=== PATIENT | female | born 1995 | race African-American/Black ===

== ENCOUNTER 2016-11-04 16:05 | Observation (INO) ==
[2016-11-04] MEDS ORDERED: SODIUM CHLORIDE 0.9% 500 ML IV STA (16:48)
--- NOTE | 2016-11-04 17:00 | Emergency Department Note ---
Cabrera Mobley [place], am scribing for, and in the presence of, Bernabe Sotelo MD 16:56. Ashleigh Mobley Charles R, MD, personally performed the services described in this documentation, ascribed by Leilani Rees in my presence, and it is both accurate and complete 700 . Arrival - Arrival Chief Complaint: Urogenital - Female Stated Complaint: 10WKS PREG/BLEEDING ED Nursing Triage Note: C/o vaginal spotting-onset 1.5 weeks ago. Patient is 10 weeks gestation. HENRIETTA 05/31/17. A0. Mode of Arrival: Ambulatory Limitations: No Limitations Source: Patient Time Seen by Provider: 11/04/16 16:46 - History of Present Illness HPI Narrative: Pt is a 21 y/o black female who is 10 weeks gestation presenting to the ED with c/o vaginal spotting that onset one week and half ago. This is her first and pt is tearful and anxious. She has saturated one pad a day. Pt denies fever, chills, nausea, abdominal cramping, vomiting, diarrhea, back pain , and AGOSTO. Pt is a A0. Consistency: constant Severity: moderate Date of Last Menstrual Period: 10 weeks gestation Allergies/Adverse Reactions: Allergies Allergy/AdvReac Type Severity Reaction Status Date / Time No Known Allergies Allergy Verified 07/17/15 10:40 Home Medications: Home Medications Medication Instructions Recorded Confirmed Type Multivitamin () [ 1 tablet PO DAILY 11/04/16 11/04/16 History Vitamin] Review of System - Review of System 12 point system: reviewed and no additional remarkable complaints except as stated - Review of System Constitutional: Absent: chills, fever, weakness Eyes: Absent: vision change Head/Ears/Nose/Throat: Absent: earache, nasal drainage Respiratory: Absent: cough Cardiovascular: Absent: chest pain, dyspnea on exertion, syncope Gastrointestinal: Absent: abdominal pain, nausea, vomiting, diarrhea Genitourinary female: Present: abnormal menses (spotting while 10 weeks gestation ). Absent: dysuria Musculoskeletal: Absent: arm pain, back pain, leg pain, neck pain Skin: Absent: rash Neurological: Absent: headache, weakness, confusion, abnormal gait, vertigo Psychiatric: Absent: anxiety Endocrine: Absent: fatigue Hematological/Lymphatic: Absent: easy bleeding Allergic/Immunologic: Absent: facial swelling Medical,Surgical,& Family Hx - Social History Smoking Status: Former smoker Frequency of Alcohol Use: None Type of Drug Use: None Exam Vital Signs: Vital Signs Temperature 97.2 F L 11/04/16 16:21 Pulse Rate 89 11/04/16 16:21 Respiratory Rate 16 11/04/16 16:21 Blood Pressure 137/75 11/04/16 16:21 O2 Sat by Pulse Oximetry 96 11/04/16 16:21 - General General appearance: alert, in no apparent distress, other (tearful ) - Head Head exam: Present: atraumatic, normocephalic, normal inspection - Eye Eye exam: Present: normal appearance, PERRL, EOMI - ENT ENT exam: Present: normal exam, normal oropharynx, mucous membranes moist, TM's normal bilaterally, normal external ear exam - Neck Neck exam: Present: normal inspection, full ROM, trachea midline. Absent: tenderness - Chest Chest inspection: Present: normal inspection, symmetric chest wall rise - Respiratory Respiratory exam: Present: normal lung sounds bilaterally - Cardiovascular Cardiovascular exam: Present: regular rate, normal rhythm, normal heart sounds - Abdominal Exam Abdominal exam: Present: soft, normal bowel sounds. Absent: distention, tenderness - Extremities Exam Extremities exam: Present: normal inspection, full ROM, normal capillary refill. Absent: tenderness, pedal edema, calf tenderness - Back Exam Back exam: Present: normal inspection, full ROM. Absent: tenderness - Neurological Exam Neurological exam: Present: alert, oriented X3, CN II-XII intact, normal gait, reflexes normal - Psychiatric Psychiatric exam: Present: normal affect, normal mood - Skin Skin exam: Present: warm, dry, intact, normal color. Absent: rash, diaphoresis Course - Consultations Consultation #1: Spoke to Dr. Rey he's going to come in and take patient to surgery for laparoscopic removal ectopic Time: 19:14 Results - Labs CBC & BMP: 11/04/16 17:12 11/04/16 17:12 Disposition Clinical Impression: Urinary tract infection, Ectopic Case discussed with: patient Disposition: Still a Patient Condition: Stable Time of Disposition: 19:21
[2016-11-04 17:47] LABS: Basophils # 0.1 10*3/uL (0.0-0.2); Basophils % 0.8 % (0.0-0.8); Eosinophils # 0.1 10*3/uL (0.0-0.87); Eosinophils % 0.8 % (0.00-10.9); Hematocrit 39.7 VOL% (35.7-47.0); Hemoglobin 12.6 GM/DL (12.0-16.0); Immature Granulocytes % 0.1 %; Immature Granulocytes Absolute 0.01 #; Lymphocytes # 1.6 10*3/uL (1.4-4.0); Lymphocytes % 20.9 % (21.3-54.2); Mean Corpuscular HGB Conc 31.7 GM/DL (32-36); Mean Corpuscular Hemoglobin 30 PG (27-34); Mean Corpuscular Volume 93.6 FL (87-102); Mean Platelet Volume 10.5 FL (9.6-12.0); Monocytes # 0.4 10*3/uL (0.11-0.8); Monocytes % 4.7 % (1.7-12.7); Neutrophils # 5.6 10*3/uL (1.4-7.4); Neutrophils % 72.7 % (38.7-73.9); Platelet Count 353 T/CUMM (130-400); Red Blood Count 4.24 MC/CUMM (3.8-5.5); Red Cell Distribution Width 13.5 % (9.3-17.3); White Blood Count 7.7 T/CUMM (4-12)
[2016-11-04 17:58] LABS: PT Patient Result 10.4 SECS
[2016-11-04 18:25] LABS: Albumin 4.2 G/DL (3.4-5.0); Bilirubin,Total 1.2 MG/DL (0.2-1.0); Calcium 9.5 MG/DL (8.5-10.1); Osmolality,Calculated 278.1 MOS/KG (273-304); Potassium 3.7 MMOL/L (3.5-5.1); Total Protein 8.4 G/DL (6.4-8.3)
[2016-11-04 18:45] LABS: Apearance,Urine Slightly Hazy (Clear); Bilirubin,Urine Negative (Negative); Blood, Urine Negative (Negative); Glucose,Urine (UA) Negative (Negative); Ketones,Urine 20 mg/dL (Negative); Mucus,Urine Occasional /LPF (Occasional); Nitrite,Urine Negative (Negative); Protein,Urine Negative; RBC,Urine 2 /HPF (0-4); Squamous Epithelial Cell,Urine Occasional /HPF (0-10); Urine Color Yellow (Yellow); Urine Specific Gravity 1.016 (1.001-1.035); Urine Urobilinogen < 2.0 EU/DL (0.2-1.0); WBC,Urine 24 /HPF (0-6)
[2016-11-04] MEDS ORDERED: cefTRIAXone 1,000 MG in SODIUM CHLORIDE 0.9% 100 ML IV STA (19:06)
--- NOTE | 2016-11-04 19:07 | Ultrasound Report ---
US transabdominal TV pelvis Indication: Vaginal bleeding x2 weeks reported gestational age of 10 weeks 2 days by LMP. Beta hCG titer is 5258. Comparison: None available. Technique: Multiple longitudinal and transverse real-time sonographic images of the pelvis are obtained using a transabdominal transducer. Further evaluation was obtained with an intravaginal transducer. Findings: The uterus is anteflexed in position and measures 7.4 x 5.3 x 6.1 cm. A 1.1 x 0.6 x 1.3 cm hypoechoic collection is present, located in the fundal cavity. No contents are identified within this hypoechoic collection, which may represent a pseudogestational sac (A true gestational sac of this size would correlate to gestational age of 5 weeks and 1 day). In the right adnexa, there is a hypoechoic heterogeneous soft tissue lesion measuring 3.1 x 1.7 x 1.8 centimeters with increased color Doppler blood flow, which is separate from the right ovary and suspicious for ectopic especially given the intrauterine findings. No left adnexal lesions are identified The amniotic fluid index is not calculated at this early gestation. A placenta is seen. The right ovary measures 1.9 x 1.8 x 2.9 cm, with the left measuring 2.3 x 1.6 x 2.7 cm. No significant free fluid is demonstrated. IMPRESSION: Findings are most compatible with a right adnexal ectopic as detailed above. Images were stored and captured. PROCEDURE INTERPRETED AT [facility] DEPARTMENT OF RADIOLOGY Final Report Signed by: Wilder Sun
[2016-11-04] MEDS ORDERED: cefTRIAXone 1,000 MG VIAL ONE (19:42)
--- NOTE | 2016-11-04 19:51 | OB/GYN History & Physical ---
History of Present Illness Chief complaint: pain with positive test ectopic on ultrasound History of present illness: Ms. Adam is a 21 year old female 1 para 0 complaining of vaginal bleeding and pelvic pain with positive hCG with hCG titer approximately 5000 and ultrasound showed nothing in the uterus and highly suspicious for right ectopic approximately 3 cm in size with a separate Doppler blood flow to this area. 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 - Constitutional Vitals: Vital Signs Temp Pulse Resp BP Pulse Ox 11/04/16 16:21 97.2 F L 89 16 137/75 96 General appearance: normal weight - Head Head exam: Present: normal inspection, normocephalic, atraumatic - Eye Eye exam: Present: EOMI Pupils: Present: NICHOLE - Neck Neck exam: Present: normal inspection - Respiratory Respiratory exam: Present: clear to auscultation bilaterally - Breast Breasts: as per HPI Menstruation: as per HPI - Cardiovascular Cardiovascular exam: Present: regular rate and rhythm - GI/Abdominal GI/Abdominal exam: Present: normal bowel sounds - Extremities Exam Extremities exam: Present: normal inspection, normal capillary refill - Back Exam Back exam: Present: normal inspection - Neurological Exam Neurological exam: Present: alert, oriented X3 - Psychiatric Psychiatric exam: Present: normal affect, anxious - Skin Skin exam: Present: normal color, warm Results - Labs CBC & BMP: 11/04/16 17:12 11/04/16 17:12
[2016-11-04] MEDS ORDERED: FAMOTIDINE 20 MG/2 ML VIAL IV ONE (19:54)
[2016-11-04] MEDS ORDERED: GLYCOPYRROLATE 0.4 MG/2 ML VIAL ONE (20:13)
[2016-11-04] MEDS ORDERED: ROCURONIUM 100 MG/10 ML VIAL IV ONE (20:13)
[2016-11-04] MEDS ORDERED: LIDOCAINE 2% 5 ML VIAL ONE (20:13)
[2016-11-04] MEDS ORDERED: SUCCINYLCHOLINE 200 MG/10 ML VIAL ONE (20:13)
[2016-11-04] MEDS ORDERED: NEOSTIGMINE 10 MG/10 ML VIAL ONE (20:13)
[2016-11-04] MEDS ORDERED: PROPOFOL 200 MG/20 ML VIAL IV ONE (20:13)
--- NOTE | 2016-11-04 21:08 | Operative Note ---
Date of procedure: 11/04/16 Pre-op diagnosis: suspected ruptured right ectopic Post-op diagnosis: same Procedure: 1. Laparoscopic removal of right ectopic 2. Dilation and curettage After the risks benefits and alternatives are splinted patient in detail and informed consent was obtained the patient was taken to the operating room where she is placed in the supine position. After achieving appropriate general endotracheal anesthesia patient was carefully repositioned in the low lithotomy position in Juwan stirrups. Vagina and abdomen were prepped and draped in usual sterile fashion. The bladder was emptied using a red Sun catheter. After the appropriate time out a weighted aced in the vagina and the anterior lip the cervix grasped with single-tooth tenaculum. The cervix was sounded to 8 cm. the uterus is noted to be anteverted was serially dilated to accommodate a 7 curved section curette and suction curettage was performed which revealed a moderate amount of tissue. This is followed by sharp curettage 360 including both cornua. A HUMI manipulator was placed without difficulty. The weighted speculum was then Removed and after regloving with the patient flaand a o G- tube in place and supra umbilical incision was made using a #11 knife. While elevating the abdominal wall using a towel clip a varies needle was introduced through the supraumbilical incision into the peritoneal space with insufflation of the abdomen with CO2. Opening pressure was noted before millimeters mercury pressure. Rapid insufflation was then performed achieving pneumoperitoneum 4-1/ 2 L at 18 mmHg pressure. Again while elevating the anterior bowel wall with a towel clip a 5 millimeter radial expending blunt trocar was inserted through the supra umbilical incision into the peritoneal space with appropriate entry confirmed by direct visualization through the laparoscope. Upon visualization of the laparoscope there was noted be mild hemoperitoneum. The patient was then placed in the slight Trendelenburg and, a 5 millimeter radial expending blunt trochars placed suprapubically and a 5 12-step trocar was placed in the left mid quadrant after transillumination for the inferior Epigastric vessel on this side. irrigation was used to remove all blood and blood clots. Was noted to be rupture of the right tube. The right tube was isolated and then an endo grasper was used to grasp the tube and a PK halo used to remove the entire tube at dissecting through the mesosalpinx to the cornua. Hemo Stasis noted to be excellent after desufflation of the abdomen. Separate images are taken all the above findings. Following completion of the procedure all instrument removed and the abdomen was completely desufflated all trochars removed and the trocar sites closed in usual fashion with skin tony and the HUMI manipulator was removed and cervix noted be hemostatic. The patient was taken out of the lithotomy position and awoke from anesthesia without complication and taken to the recovery room in stable condition. Anesthesia: GETA Surgeon / Physician: Christian Rey Estimated blood loss: minimal Specimens: other (curettings and right fallopian tube to pathology) Condition: stable Disposition: floor Results - Labs CBC & BMP: 11/04/16 17:12 11/04/16 17:12 Discharge Plan - Discharge Data Disposition: Disch To Home/Self Care Condition at Discharge: Stable Discharge Diet: advance to your usual diet Activity: increase activity as tolerated, other (pelvic rest) Hygiene: may shower Weight Bearing at Discharge: full weight bearing Driving: not until seen by doctor Contact your physician if you experience:: fever over 101, Difficulty voiding, Redness or swelling, Nausea/Vomiting, Shortness of breath, Bleeding, pain uncontrolled by pain medications - Discharge Medications New HYDROcodone/ACETAMIN 5-325 [[place] 5-325] 1 tablet PO Q4H PRN #15 tablet PRN Reason: Abdominal Pain Continue Multivitamin () [ Vitamin] 1 tablet PO DAILY - Follow Up or Referral Follow Up: Christian Rey MD [Physician] - 1 Week - Forms/Instructions
[2016-11-04] MEDS ORDERED: ONDANSETRON 4 MG/2 ML VIAL ONE (21:20)
[2016-11-04] MEDS ORDERED: HYDROmorphone 2 MG/1 ML VIAL ONE (21:20)
[2016-11-04] MEDS: HYDROmorphone 2 MG/1 ML VIAL IV PRN ×4 (21:22→21:44)
[2016-11-04] MEDS ORDERED: MIDAZOLAM 2 MG/2 ML VIAL ONE (21:25)
[2016-11-04] MEDS ORDERED: fentaNYL 100 MCG/2 ML VIAL ONE (21:25)
[2016-11-04] MEDS ORDERED: DESFLURANE 1 UNIT/15 MINUTE INH ONE (21:25)
--- NOTE | 2016-11-04 21:28 | Anesthesia ---
Anesthesia Post OP - Post Ansesthetic Evaluation Patient seen in post op: Yes Resp: within normal limits CV: within normal limits Mental: within normal limits Temp: within normal limits Cktm-[id number]: within normal limits Nausea and Vomiting: within normal limits Pain: within normal limits
[2016-11-04] MEDS ORDERED: ONDANSETRON 4 MG/2 ML VIAL IV PRN ×2 (21:30→23:26)
[2016-11-04] MEDS ORDERED: ACETAMINOPHEN 325 MG TABLET PO PRN (23:26)
[2016-11-04] MEDS ORDERED: IBUPROFEN 800 MG TABLET PO PRN (23:26)
[2016-11-04] MEDS ORDERED: BISACODYL 10 MG SUPP RECTAL PRN (23:26)
[2016-11-04] MEDS ORDERED: BENZOCAINE/MENTHOL LOZENGE 18/BOX PO PRN (23:26)
[2016-11-04] MEDS ORDERED: MAGNESIUM HYDROXIDE SUSP 30 ML UDCUP PO PRN (23:26)
[2016-11-04] MEDS ORDERED: DOCUSATE SODIUM 100 MG CAPSULE PO PRN (23:26)
[2016-11-04] MEDS: LACTATED RINGERS 1,000 ML IV SCH (23:53)
[2016-11-05 06:49] LABS: Basophils # 0.1 10*3/uL (0.0-0.2); Basophils % 0.6 % (0.0-0.8); Eosinophils % 0.3 % (0.00-10.9); Hematocrit 30.7 VOL% (35.7-47.0); Hemoglobin 9.8 GM/DL (12.0-16.0); Immature Granulocytes % 0.3 %; Immature Granulocytes Absolute 0.03 #; Lymphocytes # 1.8 10*3/uL (1.4-4.0); Lymphocytes % 18.5 % (21.3-54.2); Mean Corpuscular HGB Conc 31.9 GM/DL (32-36); Mean Corpuscular Hemoglobin 30 PG (27-34); Mean Corpuscular Volume 93.6 FL (87-102); Mean Platelet Volume 10.9 FL (9.6-12.0); Monocytes # 0.6 10*3/uL (0.11-0.8); Monocytes % 5.7 % (1.7-12.7); Neutrophils # 7.3 10*3/uL (1.4-7.4); Neutrophils % 74.6 % (38.7-73.9); Platelet Count 244 T/CUMM (130-400); Red Blood Count 3.28 MC/CUMM (3.8-5.5); Red Cell Distribution Width 13.6 % (9.3-17.3); White Blood Count 9.7 T/CUMM (4-12)
[2016-11-05] MEDS: LACTATED RINGERS 1,000 ML IV SCH (08:31)
[2016-11-05 11:20] VITALS: BP 90/54
--- NOTE | 2016-11-07 13:03 | Pathology Report from [facility] ---
ACCESSION # : [id number] PATIENT NAME : Sachin Adam ORDERING DR : PABLO BOBBY MD CLINICAL HX: Ectopic POST-OP DX: Same SPECIMEN INFO: #1 Endometrial curettings #2 Ectopic RT GROSS DESCRIPTION: Received in formalin in two parts labeled:#1 "SACHIN ADAM & #1" is a plastic specimen trap and a telfa pad containing multiple fragments of pink mccord tissue and clotted blood measuring in aggregate 10.8 x 8.5 cm. No definite chorionic villi is identified. No parts are grossly identified. [employer] Visual Merchandiser sections are submitted in cassettes 1A-1C.#2 "SACHIN ADAM & #2" consists of a hyperemic dior mccord fallopian tube measuring 5.2 x 1.5 cm. Sectioning reveals a focally dilated hemorrhagic cut surface with possible chorionic villi. Retail Visual Merchandiser sections are submitted in cassettes 2A & 2B. DIAGNOSIS FOR SACHIN ADAM: #1 ENDOMETRIAL CURETTINGS: Late secretory endometrium with decidual change.#2 ECTOPIC RIGHT: Ectopic products of conception including chorionic villi, inflammation, blood. SERVICE DATE: 11/06/2016 REPORT DATE: 11/07/2016 PATHOLOGIST: Anabelle Arambula
== END 2016-11-05 10:43 | disposition home or self-care (01) ==
LOC: N.ED 16:05 → N.2E 20:09 → INTOOBSV 20:45
PROVIDERS: ADMIT Specialist; ATTEND Specialist